=== PATIENT | male | born 1985 | race Caucasian/White ===

== ENCOUNTER 2019-05-01 19:44 | Emergency (ER) | payer OTHER ==
[~2019-05-01] VITALS: Ht 180.3 cm; Wt 81.6 kg
[~2019-05-01 19:44] MED LIST: AMOXICILLIN,AM875 MG PO; AMOXICILLIN500 MG PO; CIPROFLOXACIN500 MG PO; LIDEX0.05% T; MOTRIN600 MG PO; MOTRIN800 MG PO; NYSTATIN CREAM15 GM T; PREDNISONE20 MG PO; VALTREX500 MG PO; VIBRAMYCIN100 MG PO
[2019-05-01] MEDS ORDERED: ANAPROX DS550 MG PO (19:58)
== END 2019-05-01 21:15 | disposition home or self-care (01) ==
LOC: ED 19:44
DX: T15.91XA Foreign body on external eye, part unspecified, right eye, initial encounter (principal); X58.XXXA Exposure to other specified factors, initial encounter; Y93.89 Activity, other specified; Y92.89 Other specified places as the place of occurrence of the external cause; Y99.8 Other external cause status

== ENCOUNTER 2023-08-03 00:59 | Emergency (ER) | payer OTHER ==
[~2023-08-03] VITALS: Ht 180.3 cm; Wt 90.7 kg
[~2023-08-03 00:59] MED LIST changes: +ANAPROX DS550 MG PO
== END 2023-08-03 02:25 | disposition left against medical advice (07) ==
LOC: ED 00:59
DX: S00.83XA Contusion of other part of head, initial encounter (principal); Z53.29 Procedure and treatment not carried out because of patient's decision for other reasons; Z98.890 Other specified postprocedural states; Y08.89XA Assault by other specified means, initial encounter; Y93.89 Activity, other specified; Y92.59 Other trade areas as the place of occurrence of the external cause; Y99.8 Other external cause status